=== PATIENT | male | born 1970 | race Caucasian/White ===

== ENCOUNTER 2017-07-07 15:23 | Emergency (ER) | payer OTHER ==
[2017-07-07 19:04] LABS: ADD MAN DIFF? NO
[2017-07-07 19:06] LABS: BASOPHILS % 0.4 % (0.0-2.0); EOSINOPHILS # 0.2 10^3/ul (0.0-0.5); EOSINOPHILS % 1.9 % (0.0-7.0); HEMOGLOBIN 12.6 g/dl (14.0-18.0); LYMPHOCYTES % 22.8 % (15.0-51.0); MEAN CORPUSCULAR HGB CONC 34.1 g/dl (32.0-37.0); MEAN CORPUSCULAR VOLUME 82.2 fl (82.0-101.0); MEAN PLATELET VOLUME 9.3 fl (7.4-10.4); MONOCYTE # 0.7 10^3/ul (0.3-0.9); MONOCYTES % 8.1 % (0.0-11.0); NEUTROPHIL # 5.7 10^3/ul (1.6-7.5); NEUTROPHILS % 66.3 % (39.0-77.0); PLATELET COUNT 342 10^3/UL (140-415); RED CELL DISTRIBUTION WIDTH 12.7 % (11.5-14.5)
[2017-07-07 19:06] LABS: WHITE BLOOD COUNT 8.5 10^3/ul (4.8-10.8)
[2017-07-07 19:27] LABS: ANION GAP 14 (8-16); BLOOD UREA NITROGEN 28 mg/dl (7-20); CALCIUM 9.6 mg/dl (8.4-10.2); CARBON DIOXIDE 28 mmol/L (21-31); CHLORIDE 105 mmol/L (97-110); CREATININE 1.05 mg/dl (0.61-1.24); GLUCOSE 303 mg/dl (70-220); POTASSIUM 4.4 mmol/L (3.5-5.1); SODIUM 143 mmol/L (135-144)
[2017-07-07 19:38] LABS: TROPONIN-I < 0.012 ng/ml (0.000-0.120)
[2017-07-07] MEDS: KETOROLAC 30 MG INJ IM (20:49)
== END 2017-07-07 21:22 | disposition home or self-care (01) ==
LOC: FTE 15:23
DX: R51 Headache (principal); I10 Essential (primary) hypertension; E11.9 Type 2 diabetes mellitus without complications; Z79.84 Long term (current) use of oral hypoglycemic drugs
CPT/HCPCS: 36415; 70450; 71045; 80048; 84484; 85025; 93005; 96372; 99285-25

== ENCOUNTER 2017-08-09 11:39 | Emergency (ER) | payer OTHER ==
[2017-08-09] MEDS: SODIUM CHLORIDE 0.9% 1L BAG IV* (12:19)
[2017-08-09 12:23] LABS: ADD UMIC YES; UR ASCORBIC ACID NEGATIVE (NEGATIVE); UR BILIRUBIN (Dip) NEGATIVE (NEGATIVE); UR BLOOD (Dip) 2+ mg/dL (NEGATIVE); UR CLARITY CLEAR (CLEAR); UR COLOR YELLOW (YELLOW); UR GLUCOSE (Dip) 3+ mg/dL (NEGATIVE); UR KETONES (Dip) TRACE mg/dL (NEGATIVE); UR LEUKOCYTE ESTERASE (Dip) NEGATIVE Leu/ul (NEGATIVE); UR NITRITE (Dip) NEGATIVE (NEGATIVE); UR RBC 10 /HPF (0-5); UR SPECIFIC GRAVITY (Dip) 1.025 (1.003-1.030); UR TOTAL PROTEIN (Dip) 3+ mg/dl (NEGATIVE); UR UROBILINOGEN (Dip) NEGATIVE (NEGATIVE); UR WBC 1 /HPF (0-5)
[2017-08-09 12:28] LABS: ADD MAN DIFF? NO
[2017-08-09] MEDS: VANCOMYCIN 1 GM (PMX) 250 ML IVPB (12:29)
[2017-08-09] MEDS: ONDANSETRON 4 MG INJ IV (12:29)
[2017-08-09] MEDS: PIPER-TAZO 3.375 GM IV (PMX) 100 ML IVPB (12:29)
[2017-08-09] MEDS: FAMOTIDINE 20 MG INJ IV (12:29)
[2017-08-09 12:37] LABS: WHITE BLOOD COUNT 13.9 10^3/ul (4.8-10.8)
[2017-08-09 12:37] LABS: BASOPHILS % 0.1 % (0.0-2.0); EOSINOPHILS % 0.1 % (0.0-7.0); HEMATOCRIT 36.6 % (42.0-52.0); HEMOGLOBIN 12.7 g/dl (14.0-18.0); LYMPHOCYTES # 1.1 10^3/ul (0.8-2.9); MEAN CORPUSCULAR HEMOGLOBIN 27.8 pg (29.0-33.0); MEAN CORPUSCULAR HGB CONC 34.7 g/dl (32.0-37.0); MEAN CORPUSCULAR VOLUME 80.1 fl (82.0-101.0); MEAN PLATELET VOLUME 10.5 fl (7.4-10.4); MONOCYTE # 0.9 10^3/ul (0.3-0.9); MONOCYTES % 6.3 % (0.0-11.0); NEUTROPHIL # 11.9 10^3/ul (1.6-7.5); PLATELET COUNT 283 10^3/UL (140-415); RED BLOOD COUNT 4.57 10^6/ul (4.70-6.10); RED CELL DISTRIBUTION WIDTH 12.8 % (11.5-14.5)
[2017-08-09 12:50] LABS: LACTIC ACID 1.5 mmol/L (0.5-2.0)
[2017-08-09 13:02] LABS: ALANINE AMINOTRANSFERASE 28 IU/L (13-69); ALBUMIN 4.3 g/dl (3.3-4.9); ALKALINE PHOSPHATASE 145 IU/L (42-121); ANION GAP 18 (8-16); ASPARTATE AMINO TRANSFERASE 16 IU/L (15-46); BILIRUBIN,INDIRECT 0.4 mg/dl (0-1.1); BILIRUBIN,TOTAL 0.4 mg/dl (0.2-1.3); BLOOD UREA NITROGEN 23 mg/dl (7-20); CALCIUM 9.4 mg/dl (8.4-10.2); CARBON DIOXIDE 26 mmol/L (21-31); CHLORIDE 96 mmol/L (97-110); POTASSIUM 4.4 mmol/L (3.5-5.1); SODIUM 136 mmol/L (135-144); TOTAL PROTEIN 7.6 g/dl (6.1-8.1)
[2017-08-09 13:07] LABS: GLUCOSE 426 mg/dl (70-220); INR 1.07; PT RATIO 1.1
[2017-08-09 13:10] LABS: PARTIAL THROMBOPLASTIN TIME 27.9 Sec (25.0-35.0)
[2017-08-09 13:14] LABS: TROPONIN-I < 0.012 ng/ml (0.000-0.120)
[2017-08-09] MEDS: HYDROCODONE/APAP (5/325) TAB PO (13:26)
[2017-08-09] MEDS ORDERED: LABETALOL HCL 20MG INJ IV (14:30)
[2017-08-09] MEDS: POTASSIUM CHLORIDE (SR) 20 MEQ TAB PO (14:35)
[2017-08-09] MEDS: INSULIN REGULAR, HUMAN 100 UNIT/1 ML 3ML VIAL IV (14:50)
[2017-08-09] MEDS: INSULIN REGULAR 10 ML INJ IV (14:55)
== END 2017-08-09 16:09 | disposition home or self-care (01) ==
LOC: FTE 11:39
DX: E11.621 Type 2 diabetes mellitus with foot ulcer (principal); L97.519 Non-pressure chronic ulcer of other part of right foot with unspecified severity; E11.65 Type 2 diabetes mellitus with hyperglycemia; I10 Essential (primary) hypertension; R11.2 Nausea with vomiting, unspecified; Z79.84 Long term (current) use of oral hypoglycemic drugs
CPT/HCPCS: 36415; 71045; 73630; 80053; 81001; 82962; 83605; 84484; 85025; 85610; 85730; 87040; 87086; 93005; 96365; 96366; 96368; 96375; 99284-25

== ENCOUNTER 2017-09-25 17:50 | Emergency (ER) | payer OTHER | END 2017-09-25 20:46 | disposition home or self-care (01) | LOC: FTE 17:50 | DX: L97.519 Non-pressure chronic ulcer of other part of right foot with unspecified severity (principal); E11.621 Type 2 diabetes mellitus with foot ulcer; I10 Essential (primary) hypertension; Z79.84 Long term (current) use of oral hypoglycemic drugs | CPT/HCPCS: 73630; 99284-25 ==

== ENCOUNTER 2017-10-03 22:46 | Inpatient (IN) | payer OTHER ==
[2017-10-03] MEDS ORDERED: hydrALAzine 20 MG INJ (23:26)
[2017-10-03] MEDS: hydrALAzine 20 MG INJ IV (23:29)
[2017-10-04] MEDS ORDERED: HYDROmorphONE 0.5 MG/0.5 ML SYG IV
[2017-10-04] MEDS ORDERED: VANCOMYCIN IV PER PHARMACY XX
[2017-10-04] MEDS ORDERED: ACETAMINOPHEN 325 MG TAB PO
[2017-10-04] MEDS ORDERED: BISACODYL (EC) 5 MG TAB PO
[2017-10-04] MEDS ORDERED: ONDANSETRON 4 MG INJ IV
[2017-10-04] MEDS ORDERED: NACL 0.9% 3 ML SYG IV
[2017-10-04] MEDS ORDERED: DOCUSATE SODIUM 100 MG CAP PO
[2017-10-04] MEDS ORDERED: DEXTROSE 50% 50 ML SYRINGE IV ×2 (02:30)
[2017-10-04] MEDS ORDERED: GLUCOSE GEL 15 GRAM TUBE BUCCAL (02:30)
[2017-10-04] MEDS ORDERED: GLUCAGON 1 MG INJ IM (02:30)
[2017-10-04] MEDS ORDERED: GLUCOSE GEL 15 GRAM TUBE PO ×2 (02:30)
[2017-10-04] MEDS: VANCOMYCIN 2 GM in SOD CHLORIDE 0.9% 500 ML IVPB (02:38)
[2017-10-04] MEDS: ACCU-CHEK XX ×5 (02:50→20:48)
[2017-10-04] MEDS ORDERED: PENDING SANTYL ORDER FOR WOUND CARE XX (03:30)
[2017-10-04] MEDS: HEPARIN 5,000 UNIT/0.5 ML VIAL SC ×3 (05:29→20:48)
[2017-10-04 06:08] LABS: ADD MAN DIFF? NO
[2017-10-04 06:15] LABS: WHITE BLOOD COUNT 6.6 10^3/ul (4.8-10.8)
[2017-10-04 06:15] LABS: BASOPHILS % 0.5 % (0.0-2.0); EOSINOPHILS # 0.2 10^3/ul (0.0-0.5); EOSINOPHILS % 3.3 % (0.0-7.0); HEMATOCRIT 28.7 % (42.0-52.0); HEMOGLOBIN 9.6 g/dl (14.0-18.0); LYMPHOCYTES # 2.4 10^3/ul (0.8-2.9); LYMPHOCYTES % 35.7 % (15.0-51.0); MEAN CORPUSCULAR HEMOGLOBIN 27.3 pg (29.0-33.0); MEAN CORPUSCULAR HGB CONC 33.4 g/dl (32.0-37.0); MEAN CORPUSCULAR VOLUME 81.5 fl (82.0-101.0); MEAN PLATELET VOLUME 9.1 fl (7.4-10.4); MONOCYTE # 0.6 10^3/ul (0.3-0.9); MONOCYTES % 8.3 % (0.0-11.0); NEUTROPHIL # 3.4 10^3/ul (1.6-7.5); NEUTROPHILS % 51.6 % (39.0-77.0); PLATELET COUNT 484 10^3/UL (140-415); RED BLOOD COUNT 3.52 10^6/ul (4.70-6.10); RED CELL DISTRIBUTION WIDTH 13.3 % (11.5-14.5)
[2017-10-04 06:37] LABS: ALANINE AMINOTRANSFERASE 21 IU/L (13-69); ALBUMIN 2.9 g/dl (3.3-4.9); ALBUMIN/GLOBULIN RATIO 0.82; ALKALINE PHOSPHATASE 87 IU/L (42-121); ANION GAP 10 (8-16); ASPARTATE AMINO TRANSFERASE 18 IU/L (15-46); BLOOD UREA NITROGEN 20 mg/dl (7-20); CALCIUM 8.9 mg/dl (8.4-10.2); CARBON DIOXIDE 26 mmol/L (21-31); CHLORIDE 106 mmol/L (97-110); CHOL/HDL RATIO 6.5 RATIO; CHOLESTEROL 150 mg/dl (100-200); CREATININE 0.87 mg/dl (0.61-1.24); GLUCOSE 272 mg/dl (70-220); HDL CHOLESTEROL 23 mg/dl (27-67); LDL CHOLESTEROL,CALCULATED 83 mg/dl; MAGNESIUM 1.4 mg/dl (1.7-2.5); POTASSIUM 3.9 mmol/L (3.5-5.1); SODIUM 138 mmol/L (135-144); TOTAL PROTEIN 6.4 g/dl (6.1-8.1); TRIGLYCERIDES 218 mg/dl (0-149)
[2017-10-04 07:27] LABS: HEMOGLOBIN A1C 12.5 % (0-5.9)
[2017-10-04] MEDS: METOPROLOL (XL) 25 MG TAB PO (08:14)
[2017-10-04] MEDS: INSULIN ASPART [NOVOLOG] 3 ML PEN SC ×4 (08:15→20:50)
[2017-10-04] MEDS: PIPER-TAZO 3.375 GM IV (PMX) 100 ML IVPB ×4 (11:10→20:46)
[2017-10-04] MEDS: LISINOPRIL 10 MG TAB PO (11:11)
[2017-10-04 12:05] LABS: C-REACTIVE PROTEIN 0.6 mg/dl (0.0-0.9)
[2017-10-04] MEDS: LINAGLIPTIN 5 MG TABLET PO (13:00)
[2017-10-04] MEDS: metFORMIN 500 MG TAB PO ×2 (13:00→17:29)
[2017-10-04 13:05] LABS: ERYTHROCYTE SEDIMENTATION RATE 71 mm/Hr (0-15)
[2017-10-04 13:44] LABS: IRON 53 ug/dl (35-150)
[2017-10-04 13:53] LABS: % IRON SATURATION 20 % SAT (22-52); TOTAL IRON BINDING CAPACITY 270 ug/dl (241-421)
[2017-10-04 14:17] LABS: HEPATITIS B SURFACE ANTIGEN NEGATIVE (NEGATIVE)
[2017-10-04 14:20] LABS: FERRITIN 92.1 ng/ml (17.9-464.0)
[2017-10-04 14:33] LABS: HEPATITIS C VIRAL ANTIBODY NEGATIVE (NEGATIVE)
[2017-10-04] MEDS: VANCOMYCIN 1.5 GM in SOD CHLORIDE 0.9% 250 ML IVPB (14:37)
[2017-10-04 15:45] LABS: HEPATITIS B SURFACE ANTIBODY INDETERMINATE (NEGATIVE)
[2017-10-04] MEDS ORDERED: INSULIN GLARGINE [LANTus] (100 UNITS/ML) SYG SC (20:00)
[2017-10-04] MEDS: INSULIN GLARGINE [LANTus] (100 UNITS/ML) SYG SC (20:47)
[2017-10-04] MEDS: FISH OIL 1,000 MG CAP PO (20:49)
[2017-10-04] MEDS: LISINOPRIL 20 MG TAB PO (20:49)
[2017-10-05] MEDS: ACCU-CHEK XX ×9 (00:22→20:32)
[2017-10-05] MEDS: PIPER-TAZO 3.375 GM IV (PMX) 100 ML IVPB ×4 (00:22→17:26)
[2017-10-05] MEDS: VANCOMYCIN 1.5 GM in SOD CHLORIDE 0.9% 250 ML IVPB (01:44)
[2017-10-05] MEDS: HEPARIN 5,000 UNIT/0.5 ML VIAL SC ×3 (05:13→21:30)
[2017-10-05 05:48] LABS: ADD MAN DIFF? NO
[2017-10-05 05:51] LABS: WHITE BLOOD COUNT 6.5 10^3/ul (4.8-10.8)
[2017-10-05 05:51] LABS: BASOPHILS % 0.5 % (0.0-2.0); EOSINOPHILS # 0.3 10^3/ul (0.0-0.5); EOSINOPHILS % 4.3 % (0.0-7.0); HEMATOCRIT 27.9 % (42.0-52.0); HEMOGLOBIN 9.1 g/dl (14.0-18.0); LYMPHOCYTES # 2.4 10^3/ul (0.8-2.9); LYMPHOCYTES % 36.1 % (15.0-51.0); MEAN CORPUSCULAR HGB CONC 32.6 g/dl (32.0-37.0); MEAN CORPUSCULAR VOLUME 82.8 fl (82.0-101.0); MEAN PLATELET VOLUME 8.8 fl (7.4-10.4); MONOCYTE # 0.5 10^3/ul (0.3-0.9); MONOCYTES % 7.7 % (0.0-11.0); NEUTROPHIL # 3.3 10^3/ul (1.6-7.5); NEUTROPHILS % 51.1 % (39.0-77.0); PLATELET COUNT 430 10^3/UL (140-415); RED BLOOD COUNT 3.37 10^6/ul (4.70-6.10); RED CELL DISTRIBUTION WIDTH 13.5 % (11.5-14.5)
[2017-10-05 06:16] LABS: ALANINE AMINOTRANSFERASE 25 IU/L (13-69); ALBUMIN 2.8 g/dl (3.3-4.9); ALBUMIN/GLOBULIN RATIO 0.84; ALKALINE PHOSPHATASE 72 IU/L (42-121); ANION GAP 12 (8-16); ASPARTATE AMINO TRANSFERASE 17 IU/L (15-46); BILIRUBIN,INDIRECT 0.1 mg/dl (0-1.1); BILIRUBIN,TOTAL 0.1 mg/dl (0.2-1.3); BLOOD UREA NITROGEN 20 mg/dl (7-20); CALCIUM 9.2 mg/dl (8.4-10.2); CARBON DIOXIDE 26 mmol/L (21-31); CHLORIDE 107 mmol/L (97-110); CREATININE 0.98 mg/dl (0.61-1.24); GLUCOSE 109 mg/dl (70-220); POTASSIUM 4.2 mmol/L (3.5-5.1); SODIUM 141 mmol/L (135-144); TOTAL PROTEIN 6.1 g/dl (6.1-8.1)
[2017-10-05 06:17] LABS: MAGNESIUM 1.6 mg/dl (1.7-2.5)
[2017-10-05] MEDS: INSULIN ASPART [NOVOLOG] 3 ML PEN SC ×4 (07:59→20:28)
[2017-10-05 08:46] LABS: ERYTHROCYTE SEDIMENTATION RATE 50 mm/Hr (0-15)
[2017-10-05] MEDS: FISH OIL 1,000 MG CAP PO ×2 (08:49→20:27)
[2017-10-05] MEDS: metFORMIN 500 MG TAB PO ×2 (08:49→17:26)
[2017-10-05] MEDS: METOPROLOL (XL) 25 MG TAB PO (08:50)
[2017-10-05] MEDS: LISINOPRIL 20 MG TAB PO ×2 (08:50→20:27)
[2017-10-05] MEDS: LINAGLIPTIN 5 MG TABLET PO (08:50)
[2017-10-05] MEDS: MAGNESIUM SULFATE 4 GM/100 ML 100 ML IVPB (12:15)
[2017-10-05 13:47] LABS: VANCOMYCIN,TROUGH 17.4 ug/ml (10.0-20.0)
[2017-10-05] MEDS: VANCOMYCIN 1.25 GM in SOD CHLORIDE 0.9% 250 ML IVPB (19:51)
[2017-10-05] MEDS: INSULIN GLARGINE [LANTus] (100 UNITS/ML) SYG SC (20:28)
[2017-10-06] MEDS: PIPER-TAZO 3.375 GM IV (PMX) 100 ML IVPB ×3 (00:02→12:11)
[2017-10-06] MEDS: ACCU-CHEK XX ×9 (02:00→21:00)
[2017-10-06 05:24] LABS: ADD MAN DIFF? NO
[2017-10-06 05:28] LABS: BASOPHIL # 0.1 10^3/ul (0.0-0.1); BASOPHILS % 0.7 % (0.0-2.0); EOSINOPHILS # 0.3 10^3/ul (0.0-0.5); EOSINOPHILS % 3.8 % (0.0-7.0); HEMATOCRIT 29.6 % (42.0-52.0); HEMOGLOBIN 9.7 g/dl (14.0-18.0); LYMPHOCYTES # 2.5 10^3/ul (0.8-2.9); LYMPHOCYTES % 35.8 % (15.0-51.0); MEAN CORPUSCULAR HEMOGLOBIN 27.1 pg (29.0-33.0); MEAN CORPUSCULAR HGB CONC 32.8 g/dl (32.0-37.0); MEAN CORPUSCULAR VOLUME 82.7 fl (82.0-101.0); MEAN PLATELET VOLUME 8.9 fl (7.4-10.4); MONOCYTE # 0.6 10^3/ul (0.3-0.9); MONOCYTES % 8.4 % (0.0-11.0); NEUTROPHIL # 3.6 10^3/ul (1.6-7.5); PLATELET COUNT 400 10^3/UL (140-415); RED BLOOD COUNT 3.58 10^6/ul (4.70-6.10); RED CELL DISTRIBUTION WIDTH 13.5 % (11.5-14.5)
[2017-10-06] MEDS: HEPARIN 5,000 UNIT/0.5 ML VIAL SC (05:34)
[2017-10-06 06:11] LABS: ANION GAP 10 (8-16); BLOOD UREA NITROGEN 20 mg/dl (7-20); CALCIUM 9.1 mg/dl (8.4-10.2); CARBON DIOXIDE 26 mmol/L (21-31); CHLORIDE 107 mmol/L (97-110); CREATININE 1.01 mg/dl (0.61-1.24); GLUCOSE 157 mg/dl (70-220); POTASSIUM 4.1 mmol/L (3.5-5.1); SODIUM 139 mmol/L (135-144)
[2017-10-06] MEDS: INSULIN ASPART [NOVOLOG] 3 ML PEN SC ×4 (08:07→21:00)
[2017-10-06] MEDS: FISH OIL 1,000 MG CAP PO ×2 (08:08→21:18)
[2017-10-06] MEDS: metFORMIN 500 MG TAB PO ×2 (08:08→18:05)
[2017-10-06] MEDS: METOPROLOL (XL) 25 MG TAB PO (08:09)
[2017-10-06] MEDS: LINAGLIPTIN 5 MG TABLET PO (08:09)
[2017-10-06] MEDS: LISINOPRIL 20 MG TAB PO (08:10)
[2017-10-06] MEDS: VANCOMYCIN 1.25 GM in SOD CHLORIDE 0.9% 250 ML IVPB ×2 (08:11→21:15)
[2017-10-06] MEDS: DOCUSATE SODIUM 100 MG CAP PO (12:00)
[2017-10-06] MEDS: DEXTROSE 5%-0.45% NACL 1,000 ML IV (12:11)
[2017-10-06] MEDS: METOPROLOL 25 MG TAB PO (12:12)
[2017-10-06 16:06] LABS: CREATININE, RANDOM URINE 85 mg/dL (20-370); MICROALBUMIN 104.8 mg/dL; MICROALBUMIN/CREATININE RATIO 1233 (<30)
[2017-10-06] MEDS ORDERED: MINERAL OIL LIGHT 10 ML VIAL (16:35)
[2017-10-06] MEDS ORDERED: CEFAZOLIN 1 GM INJ ×2 (18:15→19:15)
[2017-10-06] MEDS: LIDOCAINE 1% (MPF) 30 ML INJ (18:27)
[2017-10-06] MEDS: POLYMYXIN/BACITRACIN 1L IRRIG IRR (18:29)
[2017-10-06] MEDS ORDERED: PROPOFOL 20 ML (19:15)
[2017-10-06] MEDS ORDERED: LIDOCAINE 2% (SDV) 5 ML INJ (19:15)
[2017-10-06] MEDS ORDERED: ONDANSETRON 4 MG INJ (19:15)
[2017-10-06] MEDS ORDERED: HYDROmorphONE 1 MG/5 ML IV SYRINGE IV ×2 (19:30)
[2017-10-06] MEDS ORDERED: KETOROLAC 30 MG INJ IV (19:30)
[2017-10-06] MEDS ORDERED: MEPERIDINE 25 MG INJ IV (19:30)
[2017-10-06] MEDS ORDERED: LABETALOL HCL 20MG INJ IV (19:30)
[2017-10-06] MEDS ORDERED: HYDROCODONE/APAP (10/325) TAB PO (19:30)
[2017-10-06] MEDS ORDERED: FENTAnyl 50 MCG/ML VIAL IV (19:30)
[2017-10-06] MEDS ORDERED: DIPHENHYDRAMINE 50 MG INJ IV ×2 (19:30)
[2017-10-06] MEDS ORDERED: HYDROCODONE/APAP (5/325) TAB PO (19:30)
[2017-10-06] MEDS ORDERED: ONDANSETRON 4 MG INJ IV ×2 (19:30)
[2017-10-06] MEDS: hydrALAzine 20 MG INJ IV (19:36)
[2017-10-06] MEDS: ATORVASTATIN 10 MG TAB PO (21:19)
[2017-10-06] MEDS: INSULIN GLARGINE [LANTus] (100 UNITS/ML) SYG SC (21:19)
[2017-10-06] MEDS: METOPROLOL 50 MG TAB PO (21:21)
[2017-10-07] MEDS: PIPER-TAZO 3.375 GM IV (PMX) 100 ML IVPB ×5 (00:29→17:19)
[2017-10-07] MEDS: ACCU-CHEK XX ×9 (01:26→20:32)
[2017-10-07 07:16] LABS: ADD MAN DIFF? NO
[2017-10-07 07:21] LABS: BASOPHILS % 0.3 % (0.0-2.0); EOSINOPHILS # 0.2 10^3/ul (0.0-0.5); EOSINOPHILS % 2.4 % (0.0-7.0); HEMATOCRIT 29.3 % (42.0-52.0); HEMOGLOBIN 9.5 g/dl (14.0-18.0); LYMPHOCYTES # 1.7 10^3/ul (0.8-2.9); LYMPHOCYTES % 21.3 % (15.0-51.0); MEAN CORPUSCULAR HEMOGLOBIN 26.9 pg (29.0-33.0); MEAN CORPUSCULAR HGB CONC 32.4 g/dl (32.0-37.0); MEAN PLATELET VOLUME 8.5 fl (7.4-10.4); MONOCYTE # 0.5 10^3/ul (0.3-0.9); MONOCYTES % 6.2 % (0.0-11.0); NEUTROPHIL # 5.4 10^3/ul (1.6-7.5); NEUTROPHILS % 69.5 % (39.0-77.0); PLATELET COUNT 357 10^3/UL (140-415); RED BLOOD COUNT 3.53 10^6/ul (4.70-6.10); RED CELL DISTRIBUTION WIDTH 13.7 % (11.5-14.5)
[2017-10-07 07:21] LABS: WHITE BLOOD COUNT 7.8 10^3/ul (4.8-10.8)
[2017-10-07 07:43] LABS: ANION GAP 10 (8-16); BLOOD UREA NITROGEN 17 mg/dl (7-20); CALCIUM 9.1 mg/dl (8.4-10.2); CARBON DIOXIDE 27 mmol/L (21-31); CHLORIDE 108 mmol/L (97-110); CREATININE 1.06 mg/dl (0.61-1.24); GLUCOSE 106 mg/dl (70-220); MAGNESIUM 1.8 mg/dl (1.7-2.5); SODIUM 141 mmol/L (135-144)
[2017-10-07 07:46] LABS: VANCOMYCIN,TROUGH 13.3 ug/ml (10.0-20.0)
[2017-10-07] MEDS: INSULIN ASPART [NOVOLOG] 3 ML PEN SC ×4 (08:00→20:31)
[2017-10-07] MEDS: VANCOMYCIN 1.25 GM in SOD CHLORIDE 0.9% 250 ML IVPB ×2 (08:09→20:33)
[2017-10-07] MEDS: metFORMIN 500 MG TAB PO ×2 (08:09→17:20)
[2017-10-07] MEDS: FISH OIL 1,000 MG CAP PO ×2 (08:10→20:27)
[2017-10-07] MEDS: METOPROLOL 50 MG TAB PO ×2 (08:11→20:27)
[2017-10-07] MEDS: LINAGLIPTIN 5 MG TABLET PO (08:11)
[2017-10-07] MEDS: LISINOPRIL 20 MG TAB PO (08:16)
[2017-10-07] MEDS: NIFEdipine (XL) 30 MG TAB PO ×2 (08:16→20:32)
[2017-10-07] MEDS: ENOXAPARIN 40 MG/0.4 ML SYG SC (08:17)
[2017-10-07] MEDS: ASPIRIN (EC) 81 MG TAB PO (08:17)
[2017-10-07] MEDS: DOCUSATE SODIUM 100 MG CAP PO ×2 (12:00)
[2017-10-07] MEDS: INSULIN GLARGINE [LANTus] (100 UNITS/ML) SYG SC (20:30)
[2017-10-07] MEDS: ATORVASTATIN 10 MG TAB PO (20:32)
[2017-10-08] MEDS: PIPER-TAZO 3.375 GM IV (PMX) 100 ML IVPB ×4 (00:35→17:42)
[2017-10-08] MEDS: ACCU-CHEK XX ×9 (01:57→21:00)
[2017-10-08 06:44] LABS: ADD MAN DIFF? NO
[2017-10-08 06:47] LABS: WHITE BLOOD COUNT 7.2 10^3/ul (4.8-10.8)
[2017-10-08 06:47] LABS: BASOPHILS % 0.4 % (0.0-2.0); EOSINOPHILS # 0.2 10^3/ul (0.0-0.5); EOSINOPHILS % 2.9 % (0.0-7.0); HEMATOCRIT 28.6 % (42.0-52.0); HEMOGLOBIN 9.2 g/dl (14.0-18.0); LYMPHOCYTES # 2.3 10^3/ul (0.8-2.9); LYMPHOCYTES % 32.6 % (15.0-51.0); MEAN CORPUSCULAR HEMOGLOBIN 27.4 pg (29.0-33.0); MEAN CORPUSCULAR HGB CONC 32.2 g/dl (32.0-37.0); MEAN CORPUSCULAR VOLUME 85.1 fl (82.0-101.0); MEAN PLATELET VOLUME 9.2 fl (7.4-10.4); MONOCYTE # 0.6 10^3/ul (0.3-0.9); MONOCYTES % 8.8 % (0.0-11.0); PLATELET COUNT 358 10^3/UL (140-415); RED BLOOD COUNT 3.36 10^6/ul (4.70-6.10); RED CELL DISTRIBUTION WIDTH 13.5 % (11.5-14.5)
[2017-10-08 07:33] LABS: ANION GAP 10 (8-16); BLOOD UREA NITROGEN 20 mg/dl (7-20); CARBON DIOXIDE 27 mmol/L (21-31); CHLORIDE 108 mmol/L (97-110); CREATININE 1.29 mg/dl (0.61-1.24); GLUCOSE 102 mg/dl (70-220); SODIUM 141 mmol/L (135-144)
[2017-10-08] MEDS: INSULIN ASPART [NOVOLOG] 3 ML PEN SC ×4 (08:00→21:00)
[2017-10-08] MEDS: metFORMIN 500 MG TAB PO ×2 (08:35→17:42)
[2017-10-08] MEDS: VANCOMYCIN 1.25 GM in SOD CHLORIDE 0.9% 250 ML IVPB (08:35)
[2017-10-08] MEDS: FISH OIL 1,000 MG CAP PO ×2 (08:36→21:10)
[2017-10-08] MEDS: NIFEdipine (XL) 30 MG TAB PO ×2 (08:36→21:06)
[2017-10-08] MEDS: LISINOPRIL 20 MG TAB PO (08:36)
[2017-10-08] MEDS: LINAGLIPTIN 5 MG TABLET PO (08:37)
[2017-10-08] MEDS: ASPIRIN (EC) 81 MG TAB PO (08:37)
[2017-10-08] MEDS: METOPROLOL 50 MG TAB PO ×2 (08:37→21:06)
[2017-10-08] MEDS: ENOXAPARIN 40 MG/0.4 ML SYG SC (08:38)
[2017-10-08] MEDS: DOCUSATE SODIUM 100 MG CAP PO ×2 (12:00)
[2017-10-08 13:21] LABS: PROCALCITONIN <0.10 ng/mL (<0.10)
[2017-10-08] MEDS ORDERED: DAPTOMYCIN 420 MG in SOD CHLORIDE 0.9% 100 ML IVPB (14:30)
[2017-10-08] MEDS: SOD CHLORIDE 0.9% 1,000 ML IV (15:02)
[2017-10-08 16:24] LABS: ADD UMIC YES; UR ASCORBIC ACID NEGATIVE (NEGATIVE); UR BILIRUBIN (Dip) NEGATIVE (NEGATIVE); UR BLOOD (Dip) 1+ mg/dL (NEGATIVE); UR CLARITY CLEAR (CLEAR); UR COLOR YELLOW (YELLOW); UR GLUCOSE (Dip) NEGATIVE (NEGATIVE); UR KETONES (Dip) NEGATIVE (NEGATIVE); UR LEUKOCYTE ESTERASE (Dip) NEGATIVE Leu/ul (NEGATIVE); UR NITRITE (Dip) NEGATIVE (NEGATIVE); UR RBC 2 /HPF (0-5); UR SPECIFIC GRAVITY (Dip) 1.015 (1.003-1.030); UR TOTAL PROTEIN (Dip) 2+ mg/dl (NEGATIVE); UR UROBILINOGEN (Dip) NEGATIVE (NEGATIVE); UR WBC 0 /HPF (0-5)
[2017-10-08] MEDS: SOD CHLORIDE 0.9% IVPB (16:34)
[2017-10-08] MEDS: DAPTOMYCIN IVPB (16:34)
[2017-10-08 16:35] LABS: CREATININE,URINE RANDOM 68.79 mg/dl (20-370)
[2017-10-08 16:35] LABS: SODIUM,URINE RANDOM 147 mmol/L (30-90)
[2017-10-08] MEDS: ATORVASTATIN 10 MG TAB PO (21:05)
[2017-10-08] MEDS: INSULIN GLARGINE [LANTus] (100 UNITS/ML) SYG SC (21:09)
[2017-10-09] MEDS: DOCUSATE SODIUM 100 MG CAP PO ×3 (01:56→23:39)
[2017-10-09] MEDS: PIPER-TAZO 3.375 GM IV (PMX) 100 ML IVPB ×5 (01:56→23:39)
[2017-10-09] MEDS: SOD CHLORIDE 0.9% 1,000 ML IV ×3 (01:57→17:54)
[2017-10-09] MEDS: ACCU-CHEK XX ×9 (02:00→21:00)
[2017-10-09 05:51] LABS: ADD MAN DIFF? NO
[2017-10-09 05:55] LABS: BASOPHILS % 0.3 % (0.0-2.0); EOSINOPHILS # 0.2 10^3/ul (0.0-0.5); EOSINOPHILS % 3.3 % (0.0-7.0); HEMOGLOBIN 9.4 g/dl (14.0-18.0); LYMPHOCYTES # 2.4 10^3/ul (0.8-2.9); LYMPHOCYTES % 36.2 % (15.0-51.0); MEAN CORPUSCULAR HEMOGLOBIN 27.2 pg (29.0-33.0); MEAN CORPUSCULAR HGB CONC 32.4 g/dl (32.0-37.0); MEAN CORPUSCULAR VOLUME 84.1 fl (82.0-101.0); MEAN PLATELET VOLUME 9.3 fl (7.4-10.4); MONOCYTE # 0.6 10^3/ul (0.3-0.9); MONOCYTES % 9.2 % (0.0-11.0); NEUTROPHIL # 3.3 10^3/ul (1.6-7.5); NEUTROPHILS % 50.7 % (39.0-77.0); PLATELET COUNT 337 10^3/UL (140-415); RED BLOOD COUNT 3.45 10^6/ul (4.70-6.10); RED CELL DISTRIBUTION WIDTH 13.9 % (11.5-14.5)
[2017-10-09 05:55] LABS: WHITE BLOOD COUNT 6.6 10^3/ul (4.8-10.8)
[2017-10-09 06:24] LABS: ANION GAP 10 (8-16); BLOOD UREA NITROGEN 18 mg/dl (7-20); CALCIUM 9.1 mg/dl (8.4-10.2); CARBON DIOXIDE 29 mmol/L (21-31); CHLORIDE 107 mmol/L (97-110); CREATININE 1.19 mg/dl (0.61-1.24); GLUCOSE 99 mg/dl (70-220); POTASSIUM 4.2 mmol/L (3.5-5.1); SODIUM 142 mmol/L (135-144)
[2017-10-09 06:27] LABS: CREATINE KINASE 30 IU/L (23-200)
[2017-10-09] MEDS: INSULIN ASPART [NOVOLOG] 3 ML PEN SC ×4 (08:00→21:00)
[2017-10-09] MEDS: LINAGLIPTIN 5 MG TABLET PO (08:47)
[2017-10-09] MEDS: ASPIRIN (EC) 81 MG TAB PO (08:47)
[2017-10-09] MEDS: metFORMIN 500 MG TAB PO ×2 (08:47→17:47)
[2017-10-09] MEDS: FISH OIL 1,000 MG CAP PO ×2 (08:47→21:12)
[2017-10-09] MEDS: METOPROLOL 50 MG TAB PO ×2 (08:48→21:13)
[2017-10-09] MEDS: NIFEdipine (XL) 30 MG TAB PO ×2 (08:48→21:12)
[2017-10-09] MEDS: ENOXAPARIN 40 MG/0.4 ML SYG SC (08:50)
[2017-10-09] MEDS: SOD CHLORIDE 0.9% IVPB (16:25)
[2017-10-09] MEDS: DAPTOMYCIN IVPB (16:25)
[2017-10-09] MEDS: hydrALAzine 20 MG INJ IV (16:55)
[2017-10-09] MEDS: ATORVASTATIN 10 MG TAB PO (21:12)
[2017-10-09] MEDS: INSULIN GLARGINE [LANTus] (100 UNITS/ML) SYG SC (21:15)
[2017-10-10] MEDS: ACCU-CHEK XX ×7 (02:00→17:21)
[2017-10-10] MEDS: PIPER-TAZO 3.375 GM IV (PMX) 100 ML IVPB ×3 (05:54→17:19)
[2017-10-10 06:00] LABS: ADD MAN DIFF? NO
[2017-10-10 06:01] LABS: BASOPHILS % 0.4 % (0.0-2.0); EOSINOPHILS # 0.2 10^3/ul (0.0-0.5); HEMATOCRIT 29.4 % (42.0-52.0); HEMOGLOBIN 9.7 g/dl (14.0-18.0); LYMPHOCYTES # 2.7 10^3/ul (0.8-2.9); LYMPHOCYTES % 37.2 % (15.0-51.0); MEAN CORPUSCULAR HEMOGLOBIN 27.6 pg (29.0-33.0); MEAN CORPUSCULAR VOLUME 83.8 fl (82.0-101.0); MEAN PLATELET VOLUME 9.1 fl (7.4-10.4); MONOCYTE # 0.6 10^3/ul (0.3-0.9); MONOCYTES % 8.4 % (0.0-11.0); NEUTROPHIL # 3.7 10^3/ul (1.6-7.5); NEUTROPHILS % 50.7 % (39.0-77.0); PLATELET COUNT 310 10^3/UL (140-415); RED BLOOD COUNT 3.51 10^6/ul (4.70-6.10); RED CELL DISTRIBUTION WIDTH 13.5 % (11.5-14.5)
[2017-10-10 06:01] LABS: WHITE BLOOD COUNT 7.3 10^3/ul (4.8-10.8)
[2017-10-10 07:22] LABS: ANION GAP 15 (8-16); BLOOD UREA NITROGEN 19 mg/dl (7-20); CALCIUM 9.2 mg/dl (8.4-10.2); CARBON DIOXIDE 26 mmol/L (21-31); CHLORIDE 107 mmol/L (97-110); CREATININE 1.05 mg/dl (0.61-1.24); GLUCOSE 84 mg/dl (70-220); MAGNESIUM 1.6 mg/dl (1.7-2.5); PHOSPHORUS 4.5 mg/dl (2.5-4.9); POTASSIUM 3.6 mmol/L (3.5-5.1); SODIUM 144 mmol/L (135-144)
[2017-10-10] MEDS: INSULIN ASPART [NOVOLOG] 3 ML PEN SC ×3 (08:00→17:20)
[2017-10-10] MEDS: ENOXAPARIN 40 MG/0.4 ML SYG SC (08:16)
[2017-10-10] MEDS: LINAGLIPTIN 5 MG TABLET PO (08:17)
[2017-10-10] MEDS: ASPIRIN (EC) 81 MG TAB PO (08:17)
[2017-10-10] MEDS: FISH OIL 1,000 MG CAP PO (08:17)
[2017-10-10] MEDS: metFORMIN 500 MG TAB PO ×2 (08:17→17:21)
[2017-10-10] MEDS: NIFEdipine (XL) 30 MG TAB PO (08:18)
[2017-10-10] MEDS: METOPROLOL 50 MG TAB PO (08:18)
[2017-10-10] MEDS: MAGNESIUM SULFATE 2 GM/50 ML 50 ML IVPB (10:12)
[2017-10-10] MEDS: DOCUSATE SODIUM 100 MG CAP PO (11:51)
[2017-10-10] MEDS: MAGNESIUM SULFATE 1 GM/D5W 100 ML IVPB (12:44)
[2017-10-10] MEDS: SODIUM HYPOCHLORITE (1/40) 1 APPLIC BTL IRR (14:27)
[2017-10-10] MEDS: SOD CHLORIDE 0.9% IVPB (15:17)
[2017-10-10] MEDS: DAPTOMYCIN IVPB (15:17)
[2017-10-10 16:36] LABS: CREATININE, RANDOM URINE 84 mg/dL (20-370); MICROALBUMIN 61.2 mg/dL; MICROALBUMIN/CREATININE RATIO 729 (<30)
== END 2017-10-10 20:05 | disposition home health service (06) | DRG 623 ==
LOC: PP2 22:46
PROVIDERS: Internal Medicine
PROC: 0KBV0ZZ Excision of Right Foot Muscle, Open Approach (ICD-10-PCS; principal; 2017-10-06 18:00)
PROC: 0HXMXZZ Transfer Right Foot Skin, External Approach (ICD-10-PCS; 2017-10-06 18:00)
PROC: 0QBN0ZZ Excision of Right Metatarsal, Open Approach (ICD-10-PCS; 2017-10-06 18:00)
PROC: 0Q9N0ZZ Drainage of Right Metatarsal, Open Approach (ICD-10-PCS; 2017-10-06 18:00)
PROC: 0QBN0ZX Excision of Right Metatarsal, Open Approach, Diagnostic (ICD-10-PCS; 2017-10-06 18:00)
PROC: 0HDRXZZ Extraction of Toe Nail, External Approach (ICD-10-PCS; 2017-10-06 18:00)
PROC: 0HDRXZZ Extraction of Toe Nail, External Approach (ICD-10-PCS; 2017-10-06 18:00)
PROC: 0HBRXZX Excision of Toe Nail, External Approach, Diagnostic (ICD-10-PCS; 2017-10-06 18:00)
PROC: 3E10X8Z Irrigation of Skin and Mucous Membranes using Irrigating Substance (ICD-10-PCS; 2017-10-06 18:00)
DX: E11.621 Type 2 diabetes mellitus with foot ulcer (principal); M86.271 Subacute osteomyelitis, right ankle and foot; L97.419 Non-pressure chronic ulcer of right heel and midfoot with unspecified severity; L02.611 Cutaneous abscess of right foot; M00.9 Pyogenic arthritis, unspecified; L03.115 Cellulitis of right lower limb; M86.671 Other chronic osteomyelitis, right ankle and foot; N17.0 Acute kidney failure with tubular necrosis; E11.69 Type 2 diabetes mellitus with other specified complication; E11.22 Type 2 diabetes mellitus with diabetic chronic kidney disease; E11.42 Type 2 diabetes mellitus with diabetic polyneuropathy; E11.65 Type 2 diabetes mellitus with hyperglycemia; E83.42 Hypomagnesemia; E11.51 Type 2 diabetes mellitus with diabetic peripheral angiopathy without gangrene; E78.5 Hyperlipidemia, unspecified; I12.9 Hypertensive chronic kidney disease with stage 1 through stage 4 chronic kidney disease, or unspecified chronic kidney disease; N18.1 Chronic kidney disease, stage 1; R60.0 Localized edema; D63.1 Anemia in chronic kidney disease; I73.9 Peripheral vascular disease, unspecified; M65.872 Other synovitis and tenosynovitis, left ankle and foot; B95.61 Methicillin susceptible Staphylococcus aureus infection as the cause of diseases classified elsewhere; B96.1 Klebsiella pneumoniae [K. pneumoniae] as the cause of diseases classified elsewhere; S90.222A Contusion of left lesser toe(s) with damage to nail, initial encounter; X58.XXXA Exposure to other specified factors, initial encounter; Y93.9 Activity, unspecified; Y92.019 Unspecified place in single-family (private) house as the place of occurrence of the external cause; Y99.8 Other external cause status; Z91.14 Patient's other noncompliance with medication regimen; Z79.4 Long term (current) use of insulin; Z89.421 Acquired absence of other right toe(s)
CPT/HCPCS: 73718; 76775; 80048; 80053; 80061; 80202; 81001; 81003; 82043; 82550; 82728; 82962; 83036; 83540; 83735; 84100; 84145; 84155; 84300; 84443; 85025; 85651; 86140; 86706; 86803; 87070; 87075; 87102; 87116; 87340; 88300; 88304; 93922; 93926

== ENCOUNTER 2017-10-29 06:02 | Day surgery (SDC) | payer OTHER ==
[~2017-10-29 06:02] MED LIST: CEFAZOLIN 2 GM/50 ML (PMX) 50 ML IVPB
[2017-10-29] MEDS ORDERED: LIDOCAINE 1% (MPF) 30 ML INJ (06:28)
[2017-10-29] MEDS ORDERED: EPHEDrine SULFATE 50 MG/5 ML SYG (07:00)
[2017-10-29] MEDS: SOD CHLORIDE 0.9% 1,000 ML IV ×2 (07:07→09:10)
[2017-10-29] MEDS ORDERED: MINERAL OIL LIGHT 10 ML VIAL (07:16)
[2017-10-29] MEDS ORDERED: CEFAZOLIN 1 GM INJ (07:45)
[2017-10-29] MEDS ORDERED: MIDAZOLAM 1 MG/ML 2 ML INJ (07:45)
[2017-10-29] MEDS ORDERED: PROPOFOL 20 ML (07:45)
[2017-10-29] MEDS ORDERED: ROPIVACAINE 0.5 % 30 ML VIAL (07:45)
[2017-10-29] MEDS ORDERED: ROPIVACAINE 0.2% 20 ML VIAL (07:45)
[2017-10-29] MEDS ORDERED: LABETALOL HCL 20MG INJ IV (08:00)
[2017-10-29] MEDS ORDERED: MEPERIDINE 25 MG INJ IV (08:00)
[2017-10-29] MEDS ORDERED: ONDANSETRON 4 MG INJ IV (08:00)
[2017-10-29] MEDS ORDERED: FENTAnyl 50 MCG/ML VIAL IV ×3 (08:00)
[2017-10-29] MEDS ORDERED: OXYCODONE/ACETAMINOPHEN (5/325) TAB PO ×2 (08:00)
[2017-10-29] MEDS ORDERED: METOCLOPRAMIDE 10 MG INJ IV (08:00)
[2017-10-29] MEDS ORDERED: HYDROmorphONE 1 MG/5 ML IV SYRINGE IV ×3 (08:00)
[2017-10-29] MEDS ORDERED: EPHEDrine SULFATE 50 MG/5 ML SYG IV (08:00)
[2017-10-29] MEDS ORDERED: hydrALAzine 20 MG INJ IV (08:00)
[2017-10-29] MEDS ORDERED: DIPHENHYDRAMINE 50 MG INJ IV (08:00)
[2017-10-29] MEDS: LIDOCAINE 1%/EPI 30 ML INJ (08:34)
[2017-10-29] MEDS ORDERED: PHENYLephrine (100 MCG/ML) 5ML SYG (08:38)
[2017-10-29] MEDS ORDERED: METOCLOPRAMIDE 10 MG INJ (08:39)
[2017-10-29] MEDS ORDERED: DEXAMETHASONE 4 MG/ML 1 ML INJ (08:39)
[2017-10-29] MEDS ORDERED: ONDANSETRON 4 MG INJ (08:39)
== END 2017-10-29 12:35 | disposition home or self-care (01) ==
LOC: SDS 06:02
DX: E11.621 Type 2 diabetes mellitus with foot ulcer (principal); E11.65 Type 2 diabetes mellitus with hyperglycemia; E11.42 Type 2 diabetes mellitus with diabetic polyneuropathy
CPT/HCPCS: 15120; 82962

== ENCOUNTER 2018-01-17 18:20 | Emergency (ER) | payer OTHER ==
[2018-01-17] MEDS: IBUPROFEN 600 MG TAB PO (18:50)
== END 2018-01-17 19:14 | disposition home or self-care (01) ==
LOC: FTE 18:20
DX: J20.9 Acute bronchitis, unspecified (principal); I10 Essential (primary) hypertension; E11.9 Type 2 diabetes mellitus without complications; Z79.4 Long term (current) use of insulin; Z87.891 Personal history of nicotine dependence
CPT/HCPCS: 99283; Z7610